=== PATIENT | male | born 1985 | race African-American/Black ===

== ENCOUNTER 2017-02-04 23:56 | Emergency (ER) | payer OTHER ==
[~2017-02-04] VITALS: Ht 180.3 cm; Wt 85.3 kg
[2017-02-05 00:08] VITALS: BP_SYST 161
[2017-02-05 00:25] VITALS: BP_SYST 161
== END 2017-02-05 00:25 ==
LOC: SED 23:56
DX: Z02.83 Encounter for blood-alcohol and blood-drug test (principal); V89.2XXA Person injured in unspecified motor-vehicle accident, traffic, initial encounter; Y93.89 Activity, other specified; Y99.8 Other external cause status; Y92.89 Other specified places as the place of occurrence of the external cause
CPT/HCPCS: 99283